=== PATIENT | female | born 1995 | race American Indian/Alaskan Native ===

== ENCOUNTER 2018-10-19 10:41 | Emergency (ER) | payer SELFPAY ==
--- NOTE | 2018-10-19 12:13 | Emergency Department Report ---
Abscess Boil HPI - HPI Chief Complaint: Skin/Abscess/Foreign Body Stated Complaint: VAGINAL PAIN Duration: 2 Days Location: Other (pubic region) Severity: Moderate History: Yes Pain, Yes Purulent Drainage, No Fever, No Numbness, No Foreign Body, No Previous History, No Insect Bite HPI: This is a 23-year-old female who presents with an abscess to the pubic region for 2 days. Patient states she is getting keloid treatments by a fishing guide in [place]. Her last keloid treatment injection was on 09/25/2018. She states she used some VEET hair removal on Friday and noticed an abscess Friday the pubic region. She reports purulent drainage starting yesterday and abscess is tender to touch. Patient reports abscess to left pubic region behind keloid. She denies vaginal discharge/vaginal bleeding, frequency, dysuria, or fever. Home Medications: Previous Rx's Medication Instructions Recorded Last Taken Type Ibuprofen [Motrin 600 MG tab] 600 mg PO Q8H PRN #12 tablet 10/19/18 Unknown Rx Sulfamethoxazole/Trimethoprim 1 each PO BID #20 tablet 10/19/18 Unknown Rx [Bactrim DS TAB] Allergies/Adverse Reactions: Allergies Allergy/AdvReac Type Severity Reaction Status Date / Time No Known Allergies Allergy Unverified 10/19/18 10:46 ED Review of Systems ROS: Stated complaint: VAGINAL PAIN Other details as noted in HPI Constitutional: denies: chills, fever Respiratory: denies: cough, shortness of breath, wheezing Cardiovascular: denies: chest pain, palpitations Gastrointestinal: denies: abdominal pain, nausea, diarrhea Genitourinary: denies: urgency, dysuria, discharge Skin: lesions (abscess to left pubic region). denies: rash Neurological: denies: headache, weakness, paresthesias Psychiatric: denies: anxiety, depression ED Past Medical Hx - Past Medical History Previous Medical History?: No - Surgical History Past Surgical History?: No - Social History Smoking Status: Never Smoker Substance Use Type: None - Medications Home Medications: Home Medications Medication Instructions Recorded Confirmed Last Taken Type Ibuprofen [Motrin 600 MG tab] 600 mg PO Q8H PRN #12 tablet 10/19/18 Unknown Rx Sulfamethoxazole/Trimethoprim 1 each PO BID #20 tablet 10/19/18 Unknown Rx [Bactrim DS TAB] ED Abscess Boil Physical Exam - Exam General: Vital signs noted. No distress. Alert and acting appropriately. Size: 1 cm Exam: Yes Tenderness, Yes Surrounding Cellulites/Erythema, Yes Normal Neurologic Exam, Yes Normal Circulation, No Fluctuance, No Lymphangitis, No Crepitation, No Heart Murmur Exam: 1 cm nonfluctuant nodule to left pubic region, tenderness, serosanguineous drainage, surrounding cellulitis ED Course Vital Signs 10/19/18 10:46 Temperature 98.4 F Pulse Rate 72 Respiratory 16 Rate Blood Pressure 124/52 O2 Sat by Pulse 97 Oximetry Critical care attestation.: If time is entered above; I have spent that time in minutes in the direct care of this critically ill patient, excluding procedure time. ED Medical Decision Making - Medical Decision Making This is a 23 y.o. female that presents with a painful abscess to left pubic region for 2 days. No history of prior abscess. She was receiving keloid treatment near abscess by fishing guide. Patient is stable and examined by me. Abscess. No acute signs of distress noted. It is not indicated for I&D. Discussed plan to start bactrim DS and ibuprofen with patient. Referral to fishing guide. Patient agrees to ED plan of care. Discharged home and follow up with PCP in 2-3 days. ED Disposition Clinical Impression: Abscess Disposition: - TO HOME OR SELFCARE Is pt being admited?: No Does the pt Need Aspirin: No Condition: Stable Instructions: Abscess (ED) Additional Instructions: Complete full round of bactrim DS antibiotic as prescribed. Follow up with PCP or ER in 2-3 days. Return to ER if foul smelling discharge, swelling, or severe pain to wound. Prescriptions: Ibuprofen [Motrin 600 MG tab] 600 mg PO Q8H PRN #12 tablet PRN Reason: Pain Sulfamethoxazole/Trimethoprim [Bactrim DS TAB] 1 each PO BID #20 tablet Referrals: [facility] [Provider Group] - 3-5 Days [facility] [Outside] - 3-5 Days Forms: Work/School Release Form(ED) Time of Disposition: 12:17
[2018-10-19 13:16] VITALS: BP 130/70
== END 2018-10-19 13:12 | disposition home or self-care (01) ==
LOC: ED 10:41
DX: L02.214 Cutaneous abscess of groin (principal)
CPT/HCPCS: 99282